=== PATIENT | female | born 1960 | race Caucasian/White ===

== ENCOUNTER 2017-10-19 12:53 | Outpatient (CLI) | payer BC | END 2017-10-19 12:54 | disposition home or self-care (01) | LOC: MWLC DTY 12:53 | PROVIDERS: ATTEND Family Medicine | DX: E66.3 Overweight (principal) | CPT/HCPCS: 97802 ==

== ENCOUNTER 2017-12-04 11:00 | Inpatient (IN) | payer BC ==
[2017-12-04 11:25] VITALS: BMI 46.7
[2017-12-11] MEDS ORDERED: Fentanyl 250 MCG/5 ML VIAL ONE (06:36)
[2017-12-11] MEDS ORDERED: Midazolam HCl 2 mg/2 ml Vial ONE ×2 (06:36→07:11)
[2017-12-11] MEDS ORDERED: Sodium Chloride 0.9% 10 ML ONE (06:40)
[2017-12-11] MEDS ORDERED: CEFAZOLIN/Water 2 GM/20 ML SYRINGE ONE (07:05)
--- NOTE | 2017-12-11 08:50 | OP ---
DATE OF PROCEDURE: 12/11/2017 SURGEON: Kota Rodríguez M.D. DIAL PRINTER: Darlin Castro PROCEDURE: Left L4-5, left L5-S1 laminectomy, facetectomy, foraminotomy, interbody arthrodesis L4-5 and L5-S1, intraoperative vertebral biomechanical device L5-S1, demineralized bone matrix, local mors elized autograft, posterolateral arthrodesis, pedicle screw instrumentation L4-S1. PROCEDURE IN DETAIL: The patient was brought to the operating room intubated. She was rolled in the prone position on gel-filled chest rolls. Incision made exposing L4 through S1 and our level was co nfirmed by x-ray. We performed complete left L4-5 and L5-S1 laminectomy, facetectomy and foraminotom ies. At the L4-5 level the disc space was entirely collapsed. We did not attempt to place an intrav ertebral device. At the L5-S1 level on the left we found the disk to be heavily calcified and ultima tely we were able to drill and chipped away at it until complete decompression of left L5 and left S1 was achieved. The bony endplates of L5 and S1 were then decorticated for arthrodesis and appropriat adriana sized biomechanical PEEK device was brought into the field, filled with demineralized bone matrix and local morselized autograft, and tapped into place securely left L5-S1. Next, pedicle screws wer e placed at left L4, L5 and S1 using lateral fluoroscopic guidance. A anand was secured between the sc rews, connected by nuts were final tightened. The wound was then extensively irrigated, immaculate h emostasis was secured, and the wound was closed in anatomic layers after application of vancomycin po wder.
[2017-12-11] MEDS ORDERED: Fentanyl 100 MCG/2 ML VIAL ONE (09:01)
[2017-12-11] MEDS ORDERED: Ketorolac Tromethamine 30 MG/ML VIAL ONE (09:01)
[2017-12-11] MEDS ORDERED: diphenhydrAMINE 50 MG/ML VIAL IVP PRN (10:05)
[2017-12-11] MEDS ORDERED: tiZANidine HCl 4 MG TAB PO PRN (10:05)
[2017-12-11] MEDS ORDERED: traMADol HCl 50 MG TAB PO PRN (10:05)
[2017-12-11] MEDS ORDERED: Promethazine HCl 25 MG/ML VIAL IM PRN (10:05)
[2017-12-11] MEDS ORDERED: Acetaminophen/Codeine 30-300mg Tablet PO PRN (10:05)
[2017-12-11] MEDS ORDERED: Promethazine 25 MG TAB PO PRN (10:05)
[2017-12-11] MEDS ORDERED: diphenhydrAMINE 25 MG CAP PO PRN (10:05)
[2017-12-11] MEDS ORDERED: Promethazine HCl 12.5 MG SUPP PR PRN (10:05)
[2017-12-11] MEDS ORDERED: Milk Of Magnesia 30 ML UDCUP PO PRN (10:05)
[2017-12-11] MEDS ORDERED: Mag-Al 1200 mg/1200 mg/30 ML UDCUP PO PRN (10:05)
[2017-12-11] MEDS ORDERED: Morphine 4 MG/ML VIAL IV PRN (10:06)
[2017-12-11] MEDS ORDERED: Ondansetron HCl/PF 4 MG/2 ML Vial IVP PRN (10:07)
[2017-12-11] MEDS ORDERED: Fioricet 325/50/40 mg Tablet PO PRN (10:09)
[2017-12-11] MEDS ORDERED: Lidocaine 1% PF 5 ML VIAL ONE (12:57)
[2017-12-11] MEDS ORDERED: Ondansetron HCl/PF 4 MG/2 ML Vial ONE (12:57)
[2017-12-11] MEDS ORDERED: Dexamethasone 20 MG/5 ML VIAL ONE (12:57)
[2017-12-11] MEDS ORDERED: PROPOFOL 200 MG/20 ML VIAL ONE (12:57)
[2017-12-11] MEDS ORDERED: Glycopyrrolate 0.2 MG/ML 5 ML SYRINGE ONE (12:57)
[2017-12-11] MEDS ORDERED: CEFAZOLIN/Water 2 GM/20 ML SYRINGE SLOW IVP SCH (14:00)
[2017-12-11] MEDS: Acetaminophen/Codeine 30-300mg Tablet PO PRN ×2 (17:16→21:08)
[2017-12-11] MEDS: Sodium Chloride 0.9% 1,000 ML IV SCH (17:18)
[2017-12-11] MEDS: CEFAZOLIN/Water 2 GM/20 ML SYRINGE SLOW IVP SCH (18:10)
[2017-12-11] MEDS: traMADol HCl 50 MG TAB PO PRN (22:51)
[2017-12-12] MEDS: CEFAZOLIN/Water 2 GM/20 ML SYRINGE SLOW IVP SCH (00:24)
[2017-12-12] MEDS: Sodium Chloride 0.9% 1,000 ML IV SCH (00:32)
--- NOTE | 2017-12-12 07:25 | DIS ---
DATE OF ADMISSION: 12/11/2017 DATE OF DISCHARGE: 12/12/2017 ATTENDING PHYSICIAN: Dr. Kota Rodríguez. HOSPITAL COURSE: The patient is a 57-year-old female status post L4-L5 TLIF, L4-5 diskecto my and fusion L5-S1 TLIF. Postoperatively, her course was uncomplicated. Her pain was well controll ed with p.o. medications, she was tolerating with a regular diet, and voiding appropriately. She did have some mild numbness and tingling to bilateral feet initially; however, she reports that this lesly ears to be improving in time. She denies any other leg dysesthesias, saddle anesthesia, bowel or rajat dder issues or leg weakness. Her incision is dry and intact. We will plan to dismiss the patient to home later today. I have discussed home care precautions. Her pain medications are being managed b dorina Lopez. We will plan to follow up with the patient in approximately 2 weeks. Please reach out to Neurosurgery for additional questions or concerns.
[2017-12-12 08:02] VITALS: BP 123/85; TEMP 98.1
[2017-12-12] MEDS ORDERED: Hydrochlorothiazide 25 MG TAB PO SCH (09:00)
[2017-12-12] MEDS: traMADol HCl 50 MG TAB PO PRN (09:40)
== END 2017-12-12 11:21 | disposition home or self-care (01) | DRG 460 ==
LOC: SURG A 12-11 06:00
PROVIDERS: ADMIT Neurological Surgery; ATTEND Neurological Surgery
PROC: 0SG00AJ Fusion of Lumbar Vertebral Joint with Interbody Fusion Device, Posterior Approach, Anterior Column, Open Approach (ICD-10-PCS; principal; 2017-12-11)
PROC: 0ST20ZZ Resection of Lumbar Vertebral Disc, Open Approach (ICD-10-PCS; 2017-12-11)
DX: M54.16 Radiculopathy, lumbar region (principal)
CPT/HCPCS: 76001; A4216; C1713; C1768; G8978-GP-CJ; G8979-GP-CJ; G8980-GP-CJ; J1885; J2250; J3010; J3370; J3490

== ENCOUNTER 2017-12-04 11:09 | Outpatient (CLI) | payer BC ==
[2017-12-04 12:01] LABS: Hemoglobin 14.1 g/dL (12.0-16.0); Mean Corpuscular HGB CONC 32.1 g/dL (32.0-36.0); Mean Corpuscular Hemoglobin 27.8 pg (27.0-31.0); Mean Corpuscular Volume 86.7 fL (78.0-98.0); Mean Platelet Volume 7.6 fL (7.4-10.4); Platelet Count 246 thou/uL (130-400); RBC Distribution Width 12.7 % (11.5-14.5); Red Blood Cell (RBC) Count 5.08 mill/uL (4.20-5.40); White Blood Cell (WBC) Count 4.6 thou/uL (4.8-10.8)
[2017-12-04 12:17] LABS: Anion Gap 14 mmol/L (10-20); BUN (Urea Nitrogen) 21 mg/dL (9.8-20.1); Calc. Creatinine Clearance 0 mL/min (70-130); Calcium 9.6 mg/dL (7.8-10.44); Carbon Dioxide 21 mmol/L (22-29); Chloride 107 mmol/L (98-107); Estimated GFR-MDRD 77; Glucose 107 mg/dL (70-105); Potassium 4.4 mmol/L (3.5-5.1); Sodium 138 mmol/L (136-145)
--- NOTE | 2017-12-10 14:28 | EKG ---
Test Reason : Blood Pressure : / mmHG Vent. Rate : 070 BPM Atrial Rate : 070 BPM P-R Int : 150 ms QRS Dur : 084 ms QT Int : 382 ms P-R-T Axes : 033 022 043 degrees QTc Int : 412 ms Normal sinus rhythm Normal ECG When compared with ECG of 20-JUL-2012 13:38, No significant change was found Confirmed by LUIS MARTINEZ (2) on 12/10/2017 2:27:49 PM Referred By: INDIRA Confirmed By:LUIS MARTINEZ
== END 2017-12-04 11:10 | disposition home or self-care (01) ==
LOC: LABBT 11:09
PROVIDERS: ATTEND Neurological Surgery
DX: Z01.818 Encounter for other preprocedural examination (principal); M54.16 Radiculopathy, lumbar region
CPT/HCPCS: 80048; 85027; 93005; 93010

== ENCOUNTER 2017-12-26 09:33 | Outpatient (CLI) | payer BC ==
--- NOTE | 2017-12-26 10:48 | RAD ---
LUMBAR SPINE TWO TO THREE VIEW SERIES: INDICATIONS: Left lumbar radiculopathy. FINDINGS: There is left-sided posterior fusion spanning L4 through S1, with left-sided pedicle screws at L4, L5 , and S1, and a vertical anand. There is a disk space prosthesis at L5-S1. Degenerative disk space na rrowing at L4-L5 and L5-S1 is present. Multilevel marginal osteophyte formation is present. There i s facet sclerosis at all lumbar spine levels. Metallic ivan overly the midline of the low lumbar and sacral spine. IMPRESSION: Postoperative and degenerative findings of the lumbar spine. POS: DIONE
== END 2017-12-26 09:34 | disposition home or self-care (01) ==
LOC: TBSIIMAG 09:33
PROVIDERS: ATTEND Neurological Surgery
DX: M47.26 Other spondylosis with radiculopathy, lumbar region (principal); Z98.890 Other specified postprocedural states
CPT/HCPCS: 72100

== ENCOUNTER 2018-02-06 14:32 | Outpatient (CLI) | payer BC ==
--- NOTE | 2018-02-06 15:33 | RAD ---
LUMBAR SPINE 2 VIEWS: HISTORY: Status post back surgery. COMPARISON: 12/26/2017. FINDINGS: Unilateral left-sided transpedicular screw at L4, L5, and S1. No perihardware lucency. Stable moder ate loss of disk space height at L4-L5. Stable disk prosthesis at L5-S1. IMPRESSION: Uncomplicated lumbar spine fusion changes. POS: JONATAN
== END 2018-02-06 14:33 | disposition home or self-care (01) ==
LOC: TBSIIMAG 14:32
PROVIDERS: ATTEND Neurological Surgery
DX: M54.16 Radiculopathy, lumbar region (principal); Z98.1 Arthrodesis status
CPT/HCPCS: 72100

== ENCOUNTER 2018-05-09 15:31 | Outpatient (CLI) | payer BC ==
--- NOTE | 2018-05-09 17:08 | RAD ---
TWO VIEWS OF THE LUMBAR SPINE: 05/09/18 COMPARISON: 02/06/18 HISTORY: Lumbar radiculopathy, prior lumbar spine surgery. FINDINGS: Left sided L5, L5 and S1 pedicle screws are present with a vertically oriented interlocking anand, sta ble. There is a stable intervertebral disc device at the L5-S1 level. There is multilevel lower lumba r spine facet hypertrophy. There is disc space narrowing and degenerative end plate change at the L4- 5 level. No acute osseous abnormality or evidence for hardware failure. IMPRESSION: Stable lumbar spine radiographs as detailed above. POS: DIONE
== END 2018-05-09 15:32 | disposition home or self-care (01) ==
LOC: TBSIIMAG 15:31
PROVIDERS: ATTEND Neurological Surgery
DX: M47.26 Other spondylosis with radiculopathy, lumbar region (principal); M48.061 Spinal stenosis, lumbar region without neurogenic claudication; Z98.890 Other specified postprocedural states
CPT/HCPCS: 72100

== ENCOUNTER 2023-01-20 11:23 | Outpatient (CLI) | payer BC ==
[2023-01-20 12:21] LABS: Hematocrit 39.3 % (34.9-44.5); Mean Corpuscular HGB CONC 33.1 g/dL (32.0-36.0); Mean Corpuscular Hemoglobin 27.8 pg (27.0-33.0); Mean Corpuscular Volume 84.2 fl (81.6-98.3); Platelet Count 241 10x3/uL (150-450); RBC Distribution Width 14.3 % (11.5-14.5); Red Blood Cell (RBC) Count 4.67 10x6/uL (3.90-5.03); White Blood Cell (WBC) Count 4.4 10x3/uL (3.5-10.5)
[2023-01-20 12:34] LABS: PTT 29.3 sec (22.0-33.0); Prothrombin Time 10.7 sec (9.5-12.1)
[2023-01-20 12:36] LABS: Anion Gap 15 mmol/L (10-20); BUN (Urea Nitrogen) 19 mg/dL (9.8-20.1); Calc. Creatinine Clearance 0 mL/min (70-130); Calcium 9.2 mg/dL (7.8-10.44); Carbon Dioxide 24 mmol/L (22-29); Chloride 108 mmol/L (98-107); Estimated GFR 69; Glucose 137 mg/dL (70-105); Potassium 3.6 mmol/L (3.5-5.1); Sodium 143 mmol/L (136-145)
== END 2023-01-20 11:24 | disposition home or self-care (01) ==
LOC: LABBT 11:23
PROVIDERS: ATTEND Urology
DX: Z01.818 Encounter for other preprocedural examination (principal); N20.1 Calculus of ureter
CPT/HCPCS: 80048; 85027; 85610; 85730; 93005; 93010